=== PATIENT | male | born 1990 | race Caucasian/White ===

== ENCOUNTER 2022-04-16 12:25 | Outpatient (CLI) | payer OTHER ==
--- NOTE | 2022-04-16 15:21 | XRAY Report ---
PROCEDURE: Knee 3 View LT INDICATIONS: LEFT KNEE PAIN. Please evaluate for fracture TECHNIQUE: 3 views of the left knee(s) were acquired. COMPARISON: None. FINDINGS: Bones: No fractures or dislocations. No suspicious bony lesions. There is mild medial femorotibial joint space narrowing, with associated degenerative change with sub chondral sclerosis and osteophyte formation. Soft tissues: No significant joint effusion. No suspicious soft tissue calcifications. IMPRESSION: Negative for fracture. Mild medial femorotibial joint space narrowing can be seen. If it would be helpful for clinical management decision making, please consider a dedicated, schedule d knee MRI for further evaluation (assuming that there is no contraindication). Reviewed by: Enzo Doyle MD on 04/16/2022 2:20 PM BRETT Approved by: Enzo Doyle MD on 04/16/2022 2:20 PM BRETT Station ID: [id number]
== END 2022-04-16 12:26 | disposition home or self-care (01) ==
LOC: DI 12:25
PROVIDERS: ATTEND Registered Nurse
DX: M17.12 Unilateral primary osteoarthritis, left knee (principal)